=== PATIENT | female | born 1930 | race African-American/Black ===

== ENCOUNTER 2019-06-11 12:51 | Emergency (ER) | payer OTHER ==
[~2019-06-11] VITALS: Ht 157.5 cm; Wt 58.0 kg
[2019-06-11 14:18] LABS: HEMATOCRIT. 33.8 % (36.0-48.0); HEMOGLOBIN. 11.4 g/dL (12.0-16.0); MEAN CORPUSCULAR HEMOGLOBIN 26.5 pg (28.0-32.0); MEAN CORPUSCULAR VOLUME 78.6 fL (81.0-99.0); MEAN PLATELET VOLUME 8.8 fl (7.4-10.4); PLATELET 394 x1000/uL (130-400); RED BLOOD CELL COUNT 4.31 mill/uL (4.2-5.4); RED CELL DISTRIBUTION WIDTH 14.7 % (11.6-14.6)
[2019-06-11 14:31] LABS: PLATELET ESTIMATE NORMAL
[2019-06-11 14:49] LABS: CHLORIDE 105 mEq/L (98-107)
[2019-06-11 14:55] LABS: ETHANOL BLOOD < 10 mg/dL
[2019-06-11 15:58] LABS: CLARITY URINE TURBID (CLEAR); COLOR URINE DARK YELLOW (YELLOW); KETONES URINE TRACE (NEGATIVE); LEUKOCYTE ESTERASE URINE 3+ (NEGATIVE); NITRITE URINE NEGATIVE (NEGATIVE); OCCULT BLOOD URINE 3+ (NEGATIVE); PROTEIN URINE 3+ (NEGATIVE); SPECIFIC GRAVITY URINE 1.022 (1.005-1.030)
[2019-06-11 16:15] LABS: CANNABINOID URINE SCREEN NEGATIVE (NEGATIVE); OPIATES URINE SCREEN NEGATIVE (NEGATIVE)
[2019-06-11 16:16] LABS: *AMPHETAMINES SCREEN URINE NEGATIVE (NEGATIVE); *BARBITURATES SCREEN URINE NEGATIVE (NEGATIVE); *BENZODIAZEPINES SCREEN URINE NEGATIVE (NEGATIVE); *COCAINE SCREEN URINE NEGATIVE (NEGATIVE); METHADONE URINE SCREEN NEGATIVE (NEGATIVE); PHENCYCLIDINE URINE SCREEN NEGATIVE (NEGATIVE)
[2019-06-11] MEDS ORDERED: SODIUM CHLORIDE 0.9% 1,000 ML IV ONE (19:15)
[2019-06-11] MEDS ORDERED: CEFTRIAXONE 2 G PREMIX 50 ML IV ONE (19:15)
[2019-06-11 22:12] VITALS: BP 115/52
== END 2019-06-11 22:13 | disposition short-term general hospital (02) ==
LOC: ER 14:01 → CANBEDREQ 19:16 → ER 22:13
DX: N39.0 Urinary tract infection, site not specified (principal); J44.9 Chronic obstructive pulmonary disease, unspecified; R47.81 Slurred speech
CPT/HCPCS: 36415; 70450; 71045; 80053; 80305; 80320; 81003; 83880; 84484; 85025; 87077; 87086; 87186; 93005; 96365; 99285; J0696; J7030; G0480